=== PATIENT | male | born 1950 | race Caucasian/White ===

== ENCOUNTER 2017-05-29 22:15 | Emergency (ER) | payer MEDICARE ==
[~2017-05-29] VITALS: Ht 188 cm; Wt 95.5 kg
[2017-05-29 22:17] VITALS: BP 124/80; PULSE 70; RESP 20; O2SAT 97
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
[2017-05-29 22:50] VITALS: BP 124/80; PULSE 70; RESP 20; O2SAT 97
== END 2017-05-29 22:51 | disposition home or self-care (01) ==
LOC: SED 22:15
DX: Z02.89 Encounter for other administrative examinations (principal); I10 Essential (primary) hypertension; Z86.19 Personal history of other infectious and parasitic diseases